=== PATIENT | female | born 1950 ===

== ENCOUNTER 2025-09-10 10:20 | Outpatient (CLI) | payer OTHER ==
[2025-09-10] MEDS ORDERED: SYNTHROID75 MCG (14:06)
[2025-09-10] MEDS ORDERED: BUCAPSOL10 MG (14:07)
[2025-09-10] MEDS ORDERED: PROTONIX40 MG (14:08)
== END 2025-09-10 10:23 | disposition home or self-care (01) ==
LOC: RAD 10:20
PROVIDERS: ATTEND Surgery
DX: K57.30 Diverticulosis of large intestine without perforation or abscess without bleeding (principal); K57.32 Diverticulitis of large intestine without perforation or abscess without bleeding; K59.02 Outlet dysfunction constipation